=== PATIENT | male | born 1990 | race Caucasian/White ===

== ENCOUNTER 2023-09-09 13:21 | Emergency (ER) | payer OTHER, MEDICAID, SELFPAY ==
[2023-09-09 13:31] VITALS: BP 136/86; PULSE 69; RESP 18; TEMP 36.6; O2SAT 100; BMI 27.5
--- NOTE | 2023-09-09 14:07 | ED_ITS ---
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 Patient states he was referred to [facility] but was not able to follow up secondary to family issues and legal issues. Patient states since then he has had some increasing difficulty with breathing by feeling tight in his neck, he states he has been able to swallow. He feels like there is fullness and swelling in the neck and airway region. Patient states that has been slowly progressive and he ultimately presents for evaluation. States that he has not had fevers, occasional sweats, denies cold cough or congestion. Occasionally nausea, endorses weight loss but no vomiting. Denies any GI or urinary symptoms. No urinary symptoms. Describes fatigue and decreased energy. Patient states no daily prescriptions. He denies surgeries besides wisdom teeth in his palate surgery. Allergic to sulfa. Does chew tobacco, does smoke marijuana, denies any IV drugs. No recent alcohol use. Related Data Home Medications Medication Instructions Recorded Confirmed No Known Home Medications 09/09/23 09/09/23 Allergies Allergy/AdvReac Type Severity Reaction Status Date / Time Sulfa (Sulfonamide Allergy Unknown Verified 09/09/23 13:56 Antibiotics) [SULFA (SULFONAMIDE ANTIBIOTICS)] Review of Systems Review of Systems ROS Unobtainable: All systems reviewed & are unremarkable except as noted in HPI and below Patient History Social History Smoking Status: Never smoker Smoking Status: Never smoker alcohol intake frequency: holidays/special occasions only Substance Use Type: marijuana Exam Narrative Exam Narrative: GEN: well nourished, well appearing male, alert and oriented x 3, patient appears to be in mild distress. HEENT: Atraumatic, pupils are equal round reactive to light, extraocular movements are intact, nares are clear, there is no conjunctival pallor. Throat is clear without any exudates, erythema, tonsillar enlargement or uvular deviation, patient has 2 in his mouth examination was asked to spit it up CT. He does have an area that appears to have some decrease color on the posterior hard palate on the right. No other obvious masses or swelling or deformity. Patient has normal speech no difficulty with saliva or secretions. No stridor. Patient has some mild anterior cervical chain lymphadenopathy but no easily palpable enlarged nodes. Normal speech. HEART: Regular rate and rhythm without murmur, clicks, rubs. LUNGS:Lungs clear to auscultation, no wheezes, rales, crackles, chest moves symmetrically ABD:bowel sounds normal, soft, non-tender, no guarding, rebound, rigidity, no masses noted, no hepatosplenomegaly :No CVA tenderness MSCL: Non-tender, no muscle atrophy, muscles strength 5/5 upper and lower extremities, full range of motion, normal gait NEURO:CN 2-12 intact, sensation normal SKIN: Rash, erythema or other skin changes. Initial Vital Signs Initial Vital Signs: Vital Signs Temperature 98 F 09/09/23 13:31 Pulse Rate 69 09/09/23 13:31 Respiratory Rate 18 09/09/23 13:31 Blood Pressure 136/86 09/09/23 13:31 Pulse Oximetry 100 09/09/23 13:31 Oxygen Delivery Method Room Air 09/09/23 13:31 Course Orders Ordered: ED Orders 09/09/23 13:54 Complete Blood Count AUTO DIFF Stat Comprehensive Metabolic Panel Stat Lipase Stat 09/09/23 15:04 CT soft tissue neck w con Stat Vital Signs Vital signs: Vital Signs - 8 hr 09/09/23 13:31 Temperature 98 F Pulse Rate 69 Respiratory Rate 18 Blood Pressure 136/86 Pulse Oximetry 100 Oxygen Delivery Method Room Air MDM - Neck Pain/Injury Lab Data 09/09/23 13:54 09/09/23 13:54 Labs: Lab Results 09/09/23 Range/Units 13:54 WBC 9.3 (4.5-11.0) X10^3/uL RBC 5.02 (4.5-5.9) X10^6/uL Hgb 14.5 (13.5-17.5) g/dL Hct 42.1 (41-53) % MCV 84.0 (80-100) fL MCH 28.9 (26-34) PG MCHC 34.4 (30-36) % RDW 13.0 (11.6-14.8) % Plt Count 233 (150-400) X10^3/uL Neut % (Auto) 75.2 H (50-75) % Lymph % (Auto) 14.2 L (25-40) % Beadle % (Auto) 8.4 (3-14) % Eos % (Auto) 1.2 L (2-4) % Baso % (Auto) 1.0 (0-2) % Neut # (Auto) 7000 (1055-6298) /uL Lymph # (Auto) 1300 (7010-8117) /uL Beadle # (Auto) 800 (0-900) /uL Eos # (Auto) 100 (0-450) /uL Baso # (Auto) 100 (0-100) /uL Sodium 140 (137-145) mmol/L Potassium 4.2 (3.4-5.1) mmol/L Chloride 106 (98-107) mmol/L Carbon Dioxide 27 (22-32) mmol/L BUN 11 (9-20) mg/dL Creatinine 0.92 (0.66-1.25) mg/dL Estimated GFR > 60 (>60) mL/min BUN/Creatinine Ratio 12.0 (6-22) Glucose 90 (70-100) mg/dL Calcium 9.4 (8.4-10.2) mg/dL Total Bilirubin 0.5 (0.2-1.3) mg/dL AST 23 (17-59) IU/L ALT 27 (<50) IU/L Alkaline Phosphatase 58 (38-126) U/L Total Protein 7.3 (6.3-8.2) g/dL Albumin 4.2 (3.5-5.0) g/dL Globulin 3.1 (1.7-4.1) g/dL Albumin/Globulin Ratio 1.4 (1.0-2.8) Lipase 196 (23-300) U/L Imaging Data CT soft tissue neck: Radiologist's Impression: Close Soft Tissue Neck CT (Signed) Deion El - 09/09/[address] [address] [address] Scan Report Signed Patient: Kenny Pink MR#: [id number] : 1990 Acct:[id number] Age/Sex: 33 / M Date of Service: 09/09/23 Loc: ED Accession Number: [id number] Procedure: CT soft tissue neck w con Ordering Provider: Majo Wu D.O. PROCEDURE: CT SOFT TISSUE NECK W CON INDICATIONS: trouble breathing TECHNIQUE: After the administration of intravenous contrast, 3.0 mm axial sections acquired from the sella to the aortic arch. Additional oblique axial 3.0 mm sections acquired through the pharynx. 3 mm thick coronal and sagittal reformats were generated. For radiation dose reduction, the following was used: automated exposure control. COMPARISON: None. FINDINGS: Image quality: Excellent. Lymph nodes: No enlarged lymph nodes seen throughout the neck. Vessels: Visualized vasculature appears patent. Neck spaces: The oropharynx, nasopharynx, and pharynx demonstrate no mucosal lesions. The vocal cords, false vocal cords, pyriform sinuses, epiglottis, vallecula, and tongue base all appear normal. Extramucosal spaces appear unremarkable. Glands: The parotid and submandibular glands appear normal. Thyroid gland is within normal limits. Miscellaneous: Visualized brain and orbits appear normal. Lung apices appear clear. Superficial soft tissues appear normal. Bones: No suspicious bony lesions. Visualized sinuses and mastoids appear unremarkable. IMPRESSION: No acute process. Dictated by: eDion El M.D. on 09/09/2023 at 15:29 Approved by: Deion El M.D. on 09/09/2023 at 15:47 MDM Narrative Medical decision making narrative: Labs shows CBC white count 9, hemoglobin of 14 with platelets of 233 leftward shift. Electrolytes, renal function LFTs are negative. CT soft tissue neck shows no acute changes. Discussed with patient would recommend follow up with ENT for direct visualization but there are no changes on CT today. Patient states he had surgery with a surgeon who saw bone spur and had it removed. Discussed with patient referred to follow-up was given contact for ENT Discharge Plan Departure Patient Disposition: Home Clinical Impression: Feared complaint without diagnosis Activity Restrictions/Additional Instructions: Please follow up with a dentist or ENT for re-evaluation. Contact for ENT is included below. Please call to set up an appointment. Your CT imaging today does not show any acute change, obvious masses but you should have a full evaluation of your airway if you were told that you had concerning changes on prior exam. Please return for new or worsening symptoms, inability to swallow your saliva or secretions, changes to voice, increasing swelling, persistent vomiting, lightheadedness or passing out or other new or concerning changes. Prescriptions: No Action No Known Home Medications Referrals: Ankush Lopez MD [Physician] - Miscellaneous,MD Benita [Primary Care Provider] - Stand Alone Forms: Patient Portal/API
[2023-09-09 14:14] LABS: Alanine Aminotransferase 27 IU/L (<50); Albumin 4.2 g/dL (3.5-5.0); Albumin Globulin Ratio 1.4 (1.0-2.8); Alkaline Phosphatase 58 U/L (38-126); Aspartate Aminotransferase 23 IU/L (17-59); Bilirubin Total 0.5 mg/dL (0.2-1.3); Blood Urea Nitrogen 11 mg/dL (9-20); Calcium 9.4 mg/dL (8.4-10.2); Carbon Dioxide 27 mmol/L (22-32); Chloride 106 mmol/L (98-107); Estimated Glomerular Filt Rate > 60 mL/min (>60); Globulin 3.1 g/dL (1.7-4.1); Glucose 90 mg/dL (70-100); HEMOLYSIS < 15 (0-50); Lipase 196 U/L (23-300); Potassium 4.2 mmol/L (3.4-5.1); Sodium 140 mmol/L (137-145); Total Protein 7.3 g/dL (6.3-8.2)
[2023-09-09 14:31] LABS: Add Manual Diff / Slide Review NO; Basophils Absolute Auto 100 /uL (0-100); Eosinophils Absolute Auto 100 /uL (0-450); Eosinophils Percent Auto 1.2 % (2-4); Hematocrit 42.1 % (41-53); Hemoglobin 14.5 g/dL (13.5-17.5); Lymphocytes Absolute Auto 1300 /uL (1100-4500); Lymphocytes Percent Auto 14.2 % (25-40); Mean Corpuscular HGB Conc 34.4 % (30-36); Mean Corpuscular Hemoglobin 28.9 PG (26-34); Monocytes Absolute Auto 800 /uL (0-900); Monocytes Percent Auto 8.4 % (3-14); Neutrophils Absolute Auto 7000 /uL (1500-7000); Neutrophils Percent Auto 75.2 % (50-75); Platelet Count 233 X10^3/uL (150-400); Red Blood Cell Count 5.02 X10^6/uL (4.5-5.9); White Blood Cell Count 9.3 X10^3/uL (4.5-11.0)
--- NOTE | 2023-09-09 15:04 | DI.CT.S_ITS ---
PROCEDURE: CT SOFT TISSUE NECK W CON INDICATIONS: trouble breathing TECHNIQUE: After the administration of intravenous contrast, 3.0 mm axial sections acquired from the sella to the aortic arch. Additional oblique axial 3.0 mm sections acquired through the pharynx. 3 mm thick coronal and sagittal reformats were generated. For radiation dose reduction, the following was used: automated exposure control. COMPARISON: None. FINDINGS: Image quality: Excellent. Lymph nodes: No enlarged lymph nodes seen throughout the neck. Vessels: Visualized vasculature appears patent. Neck spaces: The oropharynx, nasopharynx, and pharynx demonstrate no mucosal lesions. The vocal cords, false vocal cords, pyriform sinuses, epiglottis, vallecula, and tongue base all appear normal. Extramucosal spaces appear unremarkable. Glands: The parotid and submandibular glands appear normal. Thyroid gland is within normal limits. Miscellaneous: Visualized brain and orbits appear normal. Lung apices appear clear. Superficial soft tissues appear normal. Bones: No suspicious bony lesions. Visualized sinuses and mastoids appear unremarkable. IMPRESSION: No acute process. Dictated by: Deion El M.D. on 09/09/2023 at 15:29 Approved by: Deion El M.D. on 09/09/2023 at 15:47
--- NOTE | 2023-09-09 15:41 | PC.NURSE ---
patient has neck surgery years ago. He woke up from surgery and was told he had cancer. He was not able to get help due to life events and also he did not want to address it. 6 months ago he had to get a blow and go for a DUi and that made his throat sore and swell and caused some trouble with his breathing. It went away and things were good until a week ago when the swelling came back and now he says that the swelling is concerning to him. He is speaking in full sentences and does not appear to be in distress though he states that he is anxious and would like somthing for his anxiety. Provider aware. awaiting CT results.
== END 2023-09-09 16:37 | disposition home or self-care (01) ==
PROVIDERS: Emergency Provider Emergency Medicine
DX: R06.00 Dyspnea, unspecified (principal)
CPT/HCPCS: 36415; 70491; 80053; 83690; 85025; 99283; 99284; Q9967

== ENCOUNTER → 2023-09-12 13:38 | Outpatient (CLI) | payer OTHER, MEDICAID, SELFPAY ==
[2023-09-12 14:58] LABS: Add Manual Diff / Slide Review NO; Basophils Absolute Auto 100 /uL (0-100); Basophils Percent Auto 1.2 % (0-2); Eosinophils Absolute Auto 200 /uL (0-450); Eosinophils Percent Auto 1.6 % (2-4); Hematocrit 44.4 % (41-53); Hemoglobin 15.4 g/dL (13.5-17.5); Lymphocytes Absolute Auto 2000 /uL (1100-4500); Mean Corpuscular HGB Conc 34.6 % (30-36); Mean Corpuscular Hemoglobin 29.4 PG (26-34); Mean Corpuscular Volume 84.9 fL (80-100); Monocytes Absolute Auto 900 /uL (0-900); Monocytes Percent Auto 7.7 % (3-14); Neutrophils Absolute Auto 7900 /uL (1500-7000); Neutrophils Percent Auto 71.5 % (50-75); Platelet Count 309 X10^3/uL (150-400); Red Blood Cell Count 5.23 X10^6/uL (4.5-5.9); Red Cell Distribution Width 12.7 % (11.6-14.8); White Blood Cell Count 11.1 X10^3/uL (4.5-11.0)
[2023-09-12 15:13] LABS: Alanine Aminotransferase 33 IU/L (<50); Albumin 4.5 g/dL (3.5-5.0); Albumin Globulin Ratio 1.4 (1.0-2.8); Alkaline Phosphatase 57 U/L (38-126); Aspartate Aminotransferase 27 IU/L (17-59); BUN Creatinine Ratio 15.1 (6-22); Bilirubin Total 0.7 mg/dL (0.2-1.3); Blood Urea Nitrogen 13 mg/dL (9-20); Calcium 9.1 mg/dL (8.4-10.2); Carbon Dioxide 24 mmol/L (22-32); Chloride 106 mmol/L (98-107); Cholesterol 136 mg/dL (140-199); Estimated Glomerular Filt Rate > 60 mL/min (>60); Globulin 3.3 g/dL (1.7-4.1); Glucose 86 mg/dL (70-100); HDL Cholesterol 38 mg/dL (40-60); HEMOLYSIS 18 (0-50); LDL Cholesterol Calculated 76 mg/dL (<100); Potassium 4.3 mmol/L (3.4-5.1); Sodium 142 mmol/L (137-145); Total Protein 7.8 g/dL (6.3-8.2); Triglycerides 112 mg/dL (35-150)
== END ==
PROVIDERS: PCP Family Medicine; Referring Provider Family Medicine; Visit Provider Family Medicine
DX: F32.9 Major depressive disorder, single episode, unspecified (principal); R22.1 Localized swelling, mass and lump, neck; A08.4 Viral intestinal infection, unspecified; N20.0 Calculus of kidney; Z71.1 Person with feared health complaint in whom no diagnosis is made
CPT/HCPCS: 36415; 80053; 80061; 84443; 85025

== ENCOUNTER → 2023-09-17 15:52 | Outpatient (CLI) | payer OTHER, MEDICAID, SELFPAY ==
--- NOTE | 2023-09-17 15:53 | DI.US.S_ITS ---
PROCEDURE: US SOFT TISSUE HEAD AND NECK INDICATIONS: Swelling of neck TECHNIQUE: Real-time scanning was performed of the neck region of interest, with image documentation. COMPARISON: [facility], CT, CT SOFT TISSUE NECK W CON, 09/09/2023, 15:12. FINDINGS: Sonographic images of the left were obtained. Small scattered subcentimeter lymph nodes are present. IMPRESSION: Scattered subcentimeter lymph nodes. No abnormal fluid collection. Dictated by: Lita Zelaya M.D. on 09/17/2023 at 21:53 Approved by: Lita Zelaya M.D. on 09/17/2023 at 21:55
== END ==
LOC: US 15:52
PROVIDERS: PCP Family Medicine; Referring Provider Family Medicine; Visit Provider Family Medicine
DX: R22.1 Localized swelling, mass and lump, neck (principal)
CPT/HCPCS: 76536

== ENCOUNTER → 2023-09-18 10:05 | Outpatient (CLI) | payer OTHER, MEDICAID, SELFPAY ==
--- NOTE | 2023-09-18 10:06 | DI.RAD.S_ITS ---
PROCEDURE: XR CERVICAL SPINE 2V OR 3V INDICATIONS: Neck pain, neck swelling TECHNIQUE: 3 view(s) of the cervical spine were acquired. COMPARISON: [facility], US, US SOFT TISSUE HEAD AND NECK, 09/17/2023, 16:36. [facility], CT, CT SOFT TISSUE NECK W CON, 09/09/2023, 15:12. [facility], CR, XR CERVICAL SPINE 2 OR 3 VIEWS, 09/13/2022, 19:50. FINDINGS: Bones: No fractures or dislocations to the C7 level. The lateral masses of C1 appear intact on the odontoid view. No suspicious bony lesions. Postsurgical changes with discectomy and disc prosthesis at C3-C4. There is straightening of cervical curvature. The alignment is anatomical. Soft tissues: No prevertebral soft tissue swelling. IMPRESSION: 1. Stable postsurgical changes with discectomy and disc prosthesis at C3-C4. Dictated by: Mike Sequeira M.D. on 09/18/2023 at 12:26 Approved by: Mike Sequeira M.D. on 09/18/2023 at 12:29
== END ==
PROVIDERS: PCP Family Medicine; Referring Provider Family Medicine; Visit Provider Family Medicine
DX: R22.1 Localized swelling, mass and lump, neck (principal); M54.2 Cervicalgia; G89.29 Other chronic pain
CPT/HCPCS: 72040

== ENCOUNTER → 2023-09-25 13:35 | Outpatient (CLI) | payer OTHER, MEDICAID, SELFPAY | PROVIDERS: PCP Family Medicine; Referring Provider Family Medicine; Visit Provider Family Medicine | DX: R22.1 Localized swelling, mass and lump, neck (principal); R49.0 Dysphonia; M54.2 Cervicalgia; G89.29 Other chronic pain | CPT/HCPCS: 94060; 94726; 94729 ==

== ENCOUNTER → 2024-06-08 12:48 | Outpatient (CLI) | payer OTHER, MEDICAID, SELFPAY ==
--- NOTE | 2024-06-08 12:50 | DI.MRI.S_ITS ---
PROCEDURE: MR LUMBAR SPINE WO CON INDICATIONS: LUMBAR RADICULOPATHY TECHNIQUE: Noncontrast sagittal T1 spin echo and T2 fast echo, sagittal STIR, and T2 fast spin echo through the lumbar spine. In cases with scoliosis, additional coronal T2 fast spin echo may be performed. COMPARISON: [facility], , MR LUMBAR SPINE WITH/WITHOUT CONTRAST, 11/20/2017, 13:30. [facility], CR, XR LUMBAR SPINE W OBL MIN 4VW, 07/11/2016, 11:43. FINDINGS: Image quality: Diagnostic, with note made of motion artifact. Alignment and Curvature: There is normal bony alignment. Bone Marrow: Marrow is of normal overall signal. No acute vertebral body compression fractures. Spinal Cord: Conus medullaris terminates at the L1 level. Visualized cord demonstrates normal signal and size. Paraspinous Soft Tissues: No paravertebral masses. T12-L1: Normal appearance. L1-L2: Normal appearance. L2-L3: Normal appearance. L3-L4: The disc height and disk signal are well-preserved. Mild generalized disc bulge is seen. Mild facet joint hypertrophy is seen. Moderate bilateral neural foraminal narrowing is seen. Minimal central canal narrowing is seen. These imaging findings have progressed compared to the prior study. L4-L5: The disc height and disk signal are well-preserved. Mild disc bulge is seen, with a mild central disc protrusion. Moderate facet joint hypertrophy is seen. Moderate bilateral neural foraminal narrowing is seen. Mild central canal narrowing is seen. There is slight progression compared to 2018. L5-S1: The disc height and disk signal are well-preserved. Mild generalized disc bulge is seen. Moderate facet joint hypertrophy is seen. No significant neural foraminal or central canal narrowing can be seen. When comparison is made with the prior images, these findings are similar. IMPRESSION: Mild lower lumbar spine degenerative changes are seen, which are mildly progressed compared to 2018. Dictated by: Wayne Magdaleno M.D. on 06/08/2024 at 13:13 Approved by: Wayne Magdaleno M.D. on 06/08/2024 at 13:18
== END ==
LOC: MRI 12:50
PROVIDERS: PCP Family Medicine
DX: M47.26 Other spondylosis with radiculopathy, lumbar region (principal); M47.27 Other spondylosis with radiculopathy, lumbosacral region
CPT/HCPCS: 72148

== ENCOUNTER → 2024-12-16 13:02 | Outpatient (CLI) | payer OTHER, SELFPAY ==
--- NOTE | 2024-12-16 13:04 | DI.RAD.S_ITS ---
PROCEDURE: XR KNEE LT 3V INDICATIONS: INJURY TECHNIQUE: 3 views of the knee were acquired. COMPARISON: None. FINDINGS: Bones: There are no osseous abnormalities. Joints: The tibialfemoral and patellofemoral joints are normal in width and alignment without arthritic change. . Small effusion noted Soft tissues: Normal IMPRESSION: Small effusion Dictated by: Dakota Rodriguez M.D. on 12/17/2024 at 11:08 Approved by: Dakota Rodriguez M.D. on 12/17/2024 at 11:08
== END ==
LOC: DI 13:03
PROVIDERS: PCP Family Medicine; Referring Provider Chiropractor; Visit Provider Chiropractor
DX: S83.92XA Sprain of unspecified site of left knee, initial encounter (principal); M25.462 Effusion, left knee; X58.XXXA Exposure to other specified factors, initial encounter
CPT/HCPCS: 73562